=== PATIENT | male | born 1955 | race Caucasian/White ===

== ENCOUNTER 2024-11-23 06:31 | Day surgery (SDC) | payer OTHER ==
[2024-11-22 14:02] VITALS: BMI 28.4
[2024-11-23] MEDS ORDERED: DEXTROSE 50%-WATER 25 GM/50 ML DISP.SYRIN ONE (14:44)
[2024-11-23] MEDS: DEXTROSE 50%-WATER 25 GM/50 ML DISP.SYRIN IVPUSH ONE (15:00)
[2024-11-23] MEDS ORDERED: MIDAZOLAM HCL 2 MG/2 ML SINGLE DOSE VIAL ONE (15:51)
[2024-11-23] MEDS ORDERED: PROPOFOL 20 ML ONE ×2 (15:51→19:59)
[2024-11-23] MEDS ORDERED: ROCURONIUM BROMIDE 50 MG/5 ML SYRINGE ONE ×2 (15:51→19:04)
[2024-11-23] MEDS ORDERED: SUCCINYLCHOLINE CHLORIDE 200 MG/10 ML SYRINGE ONE (17:09)
[2024-11-23] MEDS: ceFAZolin SODIUM 1 GM VIAL IVPB ONE (17:30)
[2024-11-23] MEDS: BUPIVACAINE HCL/PF 0.25% (2.5MG/ML) 10 ML VIAL IJ ONE ×2 (17:46)
[2024-11-23] MEDS ORDERED: TRANEXAMIC ACID 1000 MG/10 ML VIAL ONE (19:02)
[2024-11-23] MEDS ORDERED: SUGAMMADEX SODIUM 200 MG/2 ML VIAL ONE (19:05)
[2024-11-23] MEDS ORDERED: ONDANSETRON 4 MG/2 ML VIAL ONE (19:06)
[2024-11-23] MEDS ORDERED: oxyCODONE HCL 5 MG TABLET PO PRN ×2 (20:24)
[2024-11-23] MEDS: ACETAMINOPHEN 1000 MG/100 ML BAG IVPB ONE (20:40)
[2024-11-23] MEDS: ONDANSETRON 4 MG/2 ML VIAL IVPUSH PRN (20:55)
[2024-11-23] MEDS: LACTATED RINGERS SOLUTION 1,000 ML IV SCH (21:00)
[2024-11-23] MEDS: PROMETHAZINE HCL 25 MG/1 ML VIAL IVPB ONE (21:08)
[2024-11-23] MEDS: INSULIN ASPART SLIDING SCALE (NOVOLOG) 1 VIAL SQ SCH (22:40)
[2024-11-23] MEDS ORDERED: ACETAMINOPHEN 325 MG TABLET (FP) PO PRN (23:19)
[2024-11-24 00:31] LABS: HEMATOCRIT 48.9 % (40.1-51.0); HEMOGLOBIN 15.9 g/dL (13.7-17.5); MCHC 32.5 g/dl (32.3-36.5); MEAN CELL VOLUME 88.4 fl (79.0-92.2); MEAN PLT VOLUME 10.5 fl (9.4-12.4); PLATELET COUNT 168 x10^3/uL (163-337); RDW 12.7 % (12.2-16.4)
[2024-11-24 00:53] LABS: POTASSIUM 4.3 mmol/L (3.5-5.1)
[2024-11-24 00:56] LABS: ALBUMIN 3.6 g/dl (3.4-5.0)
[2024-11-24 00:57] LABS: BLOOD UREA NITROGEN 12.6 mg/dL (7-18); MAGNESIUM 1.9 mg/dL (1.8-2.4)
[2024-11-24 01:01] LABS: BILIRUBIN,TOTAL 1.4 mg/dL (0.2-1); CREATININE 1.2 mg/dL (0.55-1.3); PHOSPHOROUS 2.8 mg/dL (2.5-4.9); TOT PROT 6.4 g/dl (6.4-8.2)
[2024-11-24] MEDS ORDERED: ACETAMINOPHEN 1000 MG/100 ML BAG IVPB PRN ×2 (02:30)
[2024-11-24] MEDS: HEPARIN NA (PORCINE) 5,000 UNITS/ML 1ML VIAL SQ SCH (06:22)
[2024-11-24 07:06] VITALS: RESP 18
[2024-11-24] MEDS: INSULIN GLARGINE (LANTUS) 100 UNITS/ML UNITS SQ SCH (09:17)
[2024-11-24] MEDS: ONDANSETRON 4 MG/2 ML VIAL IVPUSH ONE (09:17)
[2024-11-24 09:25] LABS: HEMATOCRIT 52.4 % (40.1-51.0); MCHC 32.4 g/dl (32.3-36.5); MEAN CELL VOLUME 88.4 fl (79.0-92.2); MEAN PLT VOLUME 10.7 fl (9.4-12.4); PLATELET COUNT 208 x10^3/uL (163-337); RDW 12.7 % (12.2-16.4)
[2024-11-24 09:56] LABS: POTASSIUM 4.5 mmol/L (3.5-5.1)
[2024-11-24] MEDS ORDERED: ONDANSETRON *ODT* 4 MG TABLET SL PRN (09:58)
[2024-11-24] MEDS ORDERED: ENOXAPARIN NA (PORCINE) 40 MG/0.4 ML DISP.SYRIN SQ SCH (10:00)
[2024-11-24] MEDS ORDERED: [UNRECOGNIZED DRUG - OTHER] SQ SCH (10:00)
[2024-11-24] MEDS ORDERED: INSULIN NPH HUMAN ISOPHANE SQ SCH (10:00)
[2024-11-24] MEDS: ONDANSETRON *ODT* 4 MG TABLET SL ONE (10:19)
[2024-11-24] MEDS: DEXTROSE 5%-NORMAL SALINE 1,000 ML IV SCH (10:22)
[2024-11-24 10:37] LABS: CALCIUM 9.6 mg/dL (8.5-10.1)
[2024-11-24 10:38] LABS: MAGNESIUM 2.3 mg/dL (1.8-2.4)
[2024-11-24 10:41] LABS: BILIRUBIN,TOTAL 1.7 mg/dL (0.2-1); CREATININE 1.2 mg/dL (0.55-1.3); PHOSPHOROUS 2.4 mg/dL (2.5-4.9)
[2024-11-24 12:13] VITALS: BP 120/60; PULSE 93; TEMP 98.6
== END 2024-11-24 13:04 | disposition left against medical advice (07) ==
LOC: JASU-SURG 06:31 → JASUSAT 06:31 → SUATTDRO 06:31 → J7W 21:59 → JASUSAT 11-24 13:04
PROVIDERS: ATTEND Internal Medicine
PROC: 0DQV4ZZ Repair Mesentery, Percutaneous Endoscopic Approach (ICD-10-PCS; principal; 2024-11-23 13:30)
DX: K40.30 Unilateral inguinal hernia, with obstruction, without gangrene, not specified as recurrent (principal)
CPT/HCPCS: 49650; S2900; 36415; 80053; 82962; 83735; 84100; 85027; 86850; 86900; 86901; 94010; 94760; C1781